=== PATIENT | male | born 1970 | race Caucasian/White ===

== ENCOUNTER 2017-10-29 11:49 | Emergency (ER) | payer OTHER ==
--- NOTE | 2017-10-29 13:21 | EDM.PDOC ---
ED HPI GENERAL MEDICAL PROBLEM - General Chief Complaint: Upper Extremity Injury/Pain Stated Complaint: LEFT HAND CUT TO FINGER Time Seen by Provider: 10/29/17 12:11 Source of Information: Reports: Patient History Limitations: Reports: No Limitations - History of Present Illness INITIAL COMMENTS - FREE TEXT/NARRATIVE: Patient smashed his left ring finger while at work on a mechanical hammer. Finger is opened in 2 places with skin folded under the wound. Flesh is exposed , subcutaneous material is exposed. No other injuries, no nail involvement. Onset: Today, Sudden Left Hand Pain Score (Numeric/FACES): 7 - Related Data Allergies Allergy/AdvReac Type Severity Reaction Status Date / Time No Known Allergies Allergy Verified 10/29/17 12:22 Home Meds: Home Meds . [No Known Home Meds] 10/29/17 [History] Past Medical History Musculoskeletal History: Reports: Osteoporosis Social & Family History - Tobacco Use Smoking Status *Q: Current Every Day Smoker Years of Tobacco use: 19 Packs/Tins Daily: 0.7 Review of Systems - Review of Systems Review Of Systems: See Below Constitutional: Reports: No Symptoms Eyes: Reports: No Symptoms Ears: Reports: No Symptoms Nose: Reports: No Symptoms Mouth/Throat: Reports: No Symptoms Respiratory: Reports: No Symptoms Cardiovascular: Reports: No Symptoms GI/Abdominal: Reports: No Symptoms Genitourinary: Reports: No Symptoms Musculoskeletal: Reports: Other (left ring finger pain) Skin: Reports: Wound Neurological: Reports: No Symptoms Psychiatric: Reports: No Symptoms ED EXAM, GENERAL - Physical Exam Exam: See Below Exam Limited By: No Limitations General Appearance: Alert, WD/WN, No Apparent Distress Extremities: Normal Capillary Refill, Limited Range of Motion Neurological: Alert, Oriented, CN II-XII Intact, Normal Cognition, Normal Gait, Normal Reflexes, No Motor/Sensory Deficits Skin Exam: Wound/Incision ED TRAUMA EXTREMITY PROCEDURES - Laceration/Wound Repair Left Distal Finger Lac/Wound Length In cm: 6 (linear and curved involvine 2 sides of pad of finger) Appearance: Linear, Mildly Contaminated Distal NVT: Neuro & Vascular Intact, No Tendon Injury Anesthetic Type: Digital (block to pip, anesthesia achieved) Local Anesthesia - Lidocaine (Xylocaine): 1% Plain Local Anesthetic Volume: 5cc Skin Prep: Chlorhexidine (Hibiciens) Exploration/Debridement/Repair: Wound Explored, In a Bloodless Field, Explored to Base, Moderate Debridement, No Foreign Material Found Closed With: Sutures Suture Size: 4-0 # of Sutures: 7 (7 interrupted, 11 running) Suture Type: Interrupted, Running Drain Placement: No Sterile Dressing Applied: Nurse Tetanus Status Addressed: Yes Complications: No - Additional/Other Procedure(s) Other (Free Text) Procedure(s): digital block to left ring finger. 5 mL lidocaine used to both sides, no epi Course - Vital Signs Last Recorded V/S: Last Vital Signs Temp 36.2 C 10/29/17 12:00 Pulse 69 10/29/17 12:00 Resp 16 10/29/17 12:00 BP 139/88 10/29/17 12:00 Pulse Ox 96 10/29/17 12:00 - Orders/Labs/Meds Orders: Active Orders 24 hr Category Date Time Status Fingers Fourth Digit Lt F3 [CR] Stat Exams 10/29/17 12:35 Taken Meds: Medications Discontinued Medications Generic Name Dose Route Start Last Admin Trade Name Nael PRN Reason Stop Dose Admin Lidocaine HCl 5 ml 10/29/17 12:12 10/29/17 12:49 Xylocaine-Mpf 1% INJECT 10/29/17 12:13 5 ml ONETIME ONE Administration Lidocaine HCl Confirm 10/29/17 12:30 10/29/17 12:49 Xylocaine-Mpf 1% Administered 10/29/17 12:31 5 ml Dose Administration 5 ml .ROUTE .STK-MED ONE Departure - Departure Time of Disposition: 13:41 Disposition: Home, Self-Care 01 Condition: Good Clinical Impression: Laceration of left ring finger w/o foreign body w/o damage to nail - Discharge Information Instructions: Laceration Care, Adult, Wound Infection, [id number] Forms: ED Department Discharge Additional Instructions: Keep your finger clean and dry. You can shower, but do not submerge your finger in any water. Watch for signs of infection. These are included in the paperwork I sent with you. These signs may include: fever greater than 101.5F, increased swelling, pain, pus like drainage from the site. Increased redness and a red streak from the site may also indicate infection. REmove sutures in 14 days at the clinic You can call us at any time with any questions or concerns. - Problem List & Annotations (1) Laceration of left ring finger w/o foreign body w/o damage to nail SNOMED Code(s): 231013502 Code(s): S61.215A - LACERATION W/O FB OF L RNG FNGR W/O DAMAGE TO NAIL, INIT Status: Acute Priority: Medium Qualifiers: Encounter type: initial encounter Qualified Code(s): S61.215A - Laceration without foreign body of left ring finger without damage to nail, initial encounter - Problem List Review Problem List Initiated/Reviewed/Updated: Yes - My Orders Last 24 Hours: My Active Orders 10/29/17 12:35 Fingers Fourth Digit Lt F3 [CR] Stat - Assessment/Plan Last 24 Hours: My Active Orders 10/29/17 12:35 Fingers Fourth Digit Lt F3 [CR] Stat Assessment:: left ring finger laceration Plan: Keep your finger clean and dry. You can shower, but do not submerge your finger in any water. Watch for signs of infection. These are included in the paperwork I sent with you. These signs may include: fever greater than 101.5F, increased swelling, pain, pus like drainage from the site. Increased redness and a red streak from the site may also indicate infection. REmove sutures in 14 days at the clinic You can call us at any time with any questions or concerns.
== END 2017-10-29 13:53 | disposition home or self-care (01) ==
LOC: VM.ED 11:49
DX: S61.215A Laceration without foreign body of left ring finger without damage to nail, initial encounter (principal); W22.8XXA Striking against or struck by other objects, initial encounter; Y99.0 Civilian activity done for income or pay; F17.210 Nicotine dependence, cigarettes, uncomplicated
CPT/HCPCS: 12002; 73140-F3; 99283

== ENCOUNTER 2022-12-31 08:47 | Emergency (ER) | payer OTHER ==
[2022-12-31] MEDS ORDERED: Lidocaine 1% 10 ML MDV INJECT ONE (09:11)
== END 2022-12-31 09:32 | disposition home or self-care (01) ==
LOC: SUPCPDRO 08:47 → VM.ED 08:47
DX: S61.214A Laceration without foreign body of right ring finger without damage to nail, initial encounter (principal); W26.0XXA Contact with knife, initial encounter
CPT/HCPCS: 12001; 99282; 99283; J3490